=== PATIENT | male | born 1995 | race African-American/Black ===

== ENCOUNTER 2023-02-06 13:18 | Outpatient (CLI) | payer OTHER ==
--- NOTE | 2023-02-06 16:19 | MRI Report ---
PROCEDURE: KNEE WO - LT INDICATIONS: LEFT KNEE PAIN TECHNIQUE: Noncontrast sagittal PD fast spin echo and T2 fast spin echo with fat saturation, sagittal 3-D spoile d GE with fat saturation; coronal T1 spin echo and PD fast spin echo with fat saturation, and axial P D fast spin echo with fat saturation through the knee. COMPARISON: None. FINDINGS: Image quality: Excellent. Anterior cruciate ligament: Intact. Posterior cruciate ligament: Intact. Medial collateral ligament: Intact. Lateral collateral ligament: Intact. Medial meniscus: Intact. Lateral meniscus: There is radial tearing of the lateral meniscus at the junction of the anterior ho rn and body. Medial and lateral tendons: The semimembranosus tendon insertions appear intact. Visualized portion s of the pes anserinus tendons appear normal. The popliteus tendon appears intact. Iliotibial band appears normal. Anterior structures: Mild patella anshul. The distal quadriceps tendon is intact. No patellar subluxat ion. No femoral trochlear dysplasia or ventral trochlear prominence. Mild edema at the superolateral aspect of Hoffa's fat pad can be seen in the setting of lateral femoral condyle-patellar tendon fric tion syndrome. Bones: No acute trabecular bone injury or fracture. Medial femorotibial cartilage: Intact. Lateral femorotibial cartilage: Intact. Patellofemoral cartilage: Intact. Soft tissues: There is a small joint effusion. There is a trace medial popliteal cyst. The musculatu re surrounding the knee is normal in bulk. IMPRESSION: 1.Radial tear of the lateral meniscus at the junction of the anterior horn and body. 2.No acute trabecular bone injury. Cruciate and collateral ligaments are intact. The medial meniscus is intact. 3.Mild patella anshul. Mild edema at the superolateral aspect of the infrapatellar fat pad can be seen in the setting of lateral femoral condyle-patellar tendon friction syndrome. 4.Small joint effusion. Reviewed by: Gary Juarez MD on 02/06/2023 4:18 PM PDT Approved by: Gary Juarez MD on 02/06/2023 4:18 PM PDT Station ID: [id number]
== END 2023-02-06 13:19 | disposition home or self-care (01) ==
LOC: DI 13:18
PROVIDERS: ATTEND Physician Assistant
DX: S83.282A Other tear of lateral meniscus, current injury, left knee, initial encounter (principal); M25.462 Effusion, left knee